=== PATIENT | male | born 1940 | race Caucasian/White ===

== ENCOUNTER 2020-02-26 09:11 | Outpatient (REF) | payer MEDICARE, SELFPAY ==
--- NOTE | 2020-02-26 09:16 | XR_ITS ---
EXAMINATION: XR BILATERAL KNEES STANDING AND ONE VIEW EACH KNEE CLINICAL INFORMATION: Pain right knee. COMPARISON: Bilateral knees 02/27/2019. TECHNIQUE: AP bilateral knee. Lateral view each knee. FINDINGS: AP Bilateral Knee: There is a total bilateral knee replacement with prosthetic components in satisfactory alignment. No bony abnormality seen. No soft tissue swelling. Left Knee: There is a total left knee arthroplasty with prosthetic components including the patellar prosthesis in satisfactory alignment. There is moderate inferior and superior patellar enthesophytes. No abnormal joint effusion seen. Right Knee: There is a total right knee arthroplasty with patellar prosthetic component in satisfactory alignment. Suspect minimal suprapatellar joint effusion. There is a moderate-sized inferior patellar enthesophyte. XR/XR knee RT 2V IMPRESSION: There is bilateral knee prosthesis with prosthetic components in alignment. There are moderate enthesophytes along the superior infrapatellar left knee and moderate enthesophytes along the inferior patella right knee with mild joint effusion. No bony erosive changes seen.
--- NOTE | 2020-02-26 09:16 | XR_ITS ---
EXAMINATION: XR BILATERAL KNEES STANDING AND ONE VIEW EACH KNEE CLINICAL INFORMATION: Pain right knee. COMPARISON: Bilateral knees 02/27/2019. TECHNIQUE: AP bilateral knee. Lateral view each knee. FINDINGS: AP Bilateral Knee: There is a total bilateral knee replacement with prosthetic components in satisfactory alignment. No bony abnormality seen. No soft tissue swelling. Left Knee: There is a total left knee arthroplasty with prosthetic components including the patellar prosthesis in satisfactory alignment. There is moderate inferior and superior patellar enthesophytes. No abnormal joint effusion seen. Right Knee: There is a total right knee arthroplasty with patellar prosthetic component in satisfactory alignment. Suspect minimal suprapatellar joint effusion. There is a moderate-sized inferior patellar enthesophyte. XR/XR knee LT 2V IMPRESSION: There is bilateral knee prosthesis with prosthetic components in alignment. There are moderate enthesophytes along the superior infrapatellar left knee and moderate enthesophytes along the inferior patella right knee with mild joint effusion. No bony erosive changes seen.
--- NOTE | 2020-02-26 09:16 | XR_ITS ---
EXAMINATION: XR BILATERAL KNEES STANDING AND ONE VIEW EACH KNEE CLINICAL INFORMATION: Pain right knee. COMPARISON: Bilateral knees 02/27/2019. TECHNIQUE: AP bilateral knee. Lateral view each knee. FINDINGS: AP Bilateral Knee: There is a total bilateral knee replacement with prosthetic components in satisfactory alignment. No bony abnormality seen. No soft tissue swelling. Left Knee: There is a total left knee arthroplasty with prosthetic components including the patellar prosthesis in satisfactory alignment. There is moderate inferior and superior patellar enthesophytes. No abnormal joint effusion seen. Right Knee: There is a total right knee arthroplasty with patellar prosthetic component in satisfactory alignment. Suspect minimal suprapatellar joint effusion. There is a moderate-sized inferior patellar enthesophyte. XR/XR knee standing BI IMPRESSION: There is bilateral knee prosthesis with prosthetic components in alignment. There are moderate enthesophytes along the superior infrapatellar left knee and moderate enthesophytes along the inferior patella right knee with mild joint effusion. No bony erosive changes seen.
== END 2020-02-26 09:12 | disposition home or self-care (01) ==
LOC: HO.HOSX 09:11
PROVIDERS: Visit Provider Orthopaedic Surgery
DX: M25.561 Pain in right knee (principal); M25.562 Pain in left knee; Z96.653 Presence of artificial knee joint, bilateral
CPT/HCPCS: 73560; 73565; 99212

== ENCOUNTER 2022-03-24 | Outpatient (REF) | payer MEDICARE, SELFPAY ==
--- NOTE | ~2022-03-24 | XR_ITS ---
EXAMINATION: XR HAND, RIGHT CLINICAL INFORMATION: Right hand pain COMPARISON: None TECHNIQUE: PA, lateral, and oblique views of the right hand. FINDINGS: No acute fractures. Joint space narrowing with osteophyte formation and cystic formation is seen within the first carpal metacarpal joint, second DIP joint, third DIP joint, fifth PIP joint and fifth DIP joint. Soft tissues are unremarkable. XR/XR hand RT min 3V IMPRESSION: Degenerative osteoarthritis
== END 2022-03-24 00:01 | disposition home or self-care (01) ==
LOC: HO.HOSX
PROVIDERS: Visit Provider Orthopaedic Surgery
DX: Z13.89 Encounter for screening for other disorder (principal)

== ENCOUNTER → 2022-03-24 08:45 | Outpatient (BNVA) | payer MEDICARE, SELFPAY | PROVIDERS: PCP Internal Medicine; Visit Provider Orthopaedic Surgery | DX: M18.11 Unilateral primary osteoarthritis of first carpometacarpal joint, right hand (principal); M19.041 Primary osteoarthritis, right hand; M79.641 Pain in right hand | CPT/HCPCS: 20600; 73130; 99202; J1020 ==

== ENCOUNTER 2022-03-26 07:54 | Outpatient (REF) | payer MEDICARE, SELFPAY ==
--- NOTE | ~2022-03-26 | XR_ITS ---
EXAMINATION: XR SHOULDER, RIGHT CLINICAL INFORMATION: Pain. COMPARISON: None TECHNIQUE: Three views of the right shoulder. FINDINGS: There is a loss of glenohumeral joint space with moderate inferior periarticular spurring. No loose bodies, bony erosive changes, fracture or dislocation seen. The AC joint space is maintained normal the soft tissues are normal. XR/XR shoulder RT min 2V IMPRESSION: Severe degenerative arthritic changes with periarticular spurring right glenohumeral joint space. No visible acute fracture or dislocation seen.
== END 2022-03-26 07:55 | disposition home or self-care (01) ==
LOC: HO.HOSX 07:54
PROVIDERS: Visit Provider Physician Assistant
DX: M19.011 Primary osteoarthritis, right shoulder (principal)
CPT/HCPCS: 73030; 99212

== ENCOUNTER 2022-04-28 13:14 | Outpatient (REF) | payer OTHER, SELFPAY ==
--- NOTE | ~2022-04-28 | FL_ITS ---
EXAMINATION: XR ARTHROGRAM SHOULDER, RIGHT CLINICAL INFORMATION: Primary osteoarthritis right shoulder. No injury. COMPARISON: None TECHNIQUE: Following explaining fluoroscopy-guided right shoulder arthrogram and steroid injection procedure, benefits and risk, a written consent was obtained. Patient was placed supine on fluoroscopy table and anterior aspect of the right shoulder joint was cleaned and draped in the usual sterile manner. 1% lidocaine was injected at the puncture site. A 22-gauge spinal needle was advanced from the skin into the joint space and 2 mL of nonionic contrast was injected with single image obtained. Uptake confirming contrast in the joint space, 80 mg/1 mL of Depo-Medrol, 8 mL of 1% lidocaine was injected as a 9 mL cocktail into the joint space. The needle was removed and complete hemostasis was achieved at the puncture site. Sterile dressing was applied postprocedure. FINDINGS: On 2 images obtained through the joint space there is mild reduction of glenohumeral joint with a large inferior glenohumeral enthesophyte. There is contrast visualized in the joint space and soft tissues anterior to the joint space. Fluoroscopy-guided steroid injection was performed without immediate complications. FLUOROSCOPY TIME: 1.2 minutes. DOSE AREA PRODUCT: 57.149 uGy-m2 (microgray-meter squared). FL/FL arthrogram shoulder RT IMPRESSION: Successful fluoroscopy-guided right shoulder steroid injection performed without immediate complications.
== END 2022-04-28 13:15 | disposition home or self-care (01) ==
LOC: HO.XRAY 13:14
PROVIDERS: PCP Internal Medicine; Visit Provider Physician Assistant
DX: M19.011 Primary osteoarthritis, right shoulder (principal)
CPT/HCPCS: 23350; 73040

== ENCOUNTER 2023-02-10 11:04 | Outpatient (AMB) | payer OTHER, SELFPAY ==
--- NOTE | 2023-02-10 11:08 | MHC.OFFVIS ---
Intake Vital Signs 02/10/23 11:12 02/10/23 11:13 Height 5 ft 10 in 5 ft 10 in Weight 260 lb 260 lb BMI 37.3 37.3 Intake Visit Reasons: OV - Discuss Right TSA - Arthrogram 04/28/22 Intake Note: Damir is an 82 year old right hand dominant male who presents today for a follow up of his right shoulder. Arthrogram done 04/28/22. Patient reports that this injection was not as helpful as he had hoped and he is here to discuss possible TSA. The injection gave only about 3-4 weeks, Allergies heparin [HEPARIN] Allergy (Intermediate, Unverified 03/26/22 08:37) PLATELET COUNT DIMINISHED Penicillins [PENICILLINS] Allergy (Intermediate, Unverified 03/26/22 08:37) HIVES penicillin G Allergy (Unknown, Verified 03/24/22 08:59) rash/hives Heparin Allergy (Unknown, Uncoded 03/24/22 08:59) blood clots HPI OV - Discuss Right TSA - Arthrogram 04/28/22 HPI Details Damir is an 82 year old man with right shoulder OA who presents with complaints of shoulder pain. He has pain with daily activity and use of his shoulder. He cannot get his hand to his mouth. He is in pain and frustrated that he is not improving. He received a GH joint injxn 04/28/22, with only 3-4 weeks of relief. [facility] Medical History Active asthma Arteriosclerosis Atrial fibrillation Hypercholesteremia Insomnia Nephrolithiasis Prediabetes Surgical History History of appendectomy History of total left knee replacement History of total right knee replacement Social History Current occupational status: retired Current occupation: Right Handed Review of Systems Const All systems reviewed & are unremarkable except as noted in HPI and below Physical Exam Vital Signs: BMI result Body Mass Index 37.3 Const General: no acute distress, alert and awake Orientation/consciousness: patient oriented x3 HEENT Head: Yes normocephalic and Yes atraumatic Eyes EOM: EOMs intact bilaterally Resp Effort & Inspection: normal respiratory effort and able to speak in complete sentences Cardio Jugular venous distension: no JVD Skin General skin exam: turgor normal Rashes: no rashes Neuro General: patient oriented x3 Extrem Other: Right Shoulder: 60 isolated abd 15 deg er 4/5 ec Psych Appearance: grossly normal Affect: normal affect Attitude: cooperative Results Reviewed Results Reviewed: I personally reviewed relevant radiographs Severe degenerative arthritic changes with periarticular spurring right glenohumeral joint space. No visible acute fracture or dislocation seen. Assessment & Plan Assessment & Plan (1) Arthritis of right glenohumeral joint: Code(s): M19.011 - Primary osteoarthritis, right shoulder Plan: This is an 82 year old man with severe right GH OA. He has pain with daily activity and use of his shoulder. He found limited & short-term relief from a shoulder arthrogram on 04/28/22. He feels limited in his ADLs and that his QOL is diminished. His motion is poor and I recommend TSA. I cannot adequately assess his cuff and have ordered an MRI. I supect he may require a rTSA. I discussed the risks benefits and alternatives including but not limited to the risk of pain, infection, stiffness, need for further surgery as well as potential medical complications such as blood clots, pulmonary embolism and cardiac complications. Orders: Orders MR shoulder RT wo con 02/10/23 M19.011 - Primary osteoarthritis, right shoulder CT shoulder RT wo IV con 02/10/23 M19.011 - Primary osteoarthritis, right shoulder Coding Level of Care Code Est Pt Level 4 (29249) Diagnoses Arthritis of right glenohumeral joint M19.011
[2023-02-10 11:12] VITALS: BMI 37.3
[2023-02-10 11:13] VITALS: BMI 37.3
== END 2023-02-10 12:28 | disposition home or self-care (01) ==
PROVIDERS: PCP Internal Medicine; Visit Provider Orthopaedic Surgery
DX: M19.011 Primary osteoarthritis, right shoulder (principal)
CPT/HCPCS: 99214

== ENCOUNTER → 2023-02-10 11:04 | Outpatient (BNVA) | payer OTHER, SELFPAY | PROVIDERS: PCP Internal Medicine; Visit Provider Orthopaedic Surgery ==

== ENCOUNTER 2023-03-17 08:18 | Outpatient (REF) | payer OTHER, SELFPAY ==
--- NOTE | ~2023-03-17 | CT_ITS ---
EXAMINATION: CT SHOULDER WITHOUT CONTRAST, RIGHT CLINICAL INFORMATION: Primary osteoarthritis in the right shoulder. COMPARISON: Radiographs dated 03/26/2022. TECHNIQUE: Axial multidetector volumetric imaging was obtained through the shoulder without intravenous contrast material. Multiplanar reformatted images were submitted. This CT examination was performed using dose optimization techniques as appropriate, variously including the following: *Automated exposure control *Adjustment of mA and/or kV according to patient size (this includes techniques or standardized protocols for targeted exams where dose is matched to indication/reason for exam; i.e. extremities or head) *Use of iterative reconstruction technique DLP: 385 mGy-cm. FINDINGS: Severe degenerative arthritis in the glenohumeral joint characterized by severe joint space narrowing, large marginal osteophytes, subchondral sclerosis, subchondral cystic change, and articular surface remodeling. There is a biconcave appearance of the glenoid with mild posterior erosion. A 7 mm osseous loose body is present in the superior subscapularis recess. Glenoid retroversion: 23 degrees Glenoid vault depth: 24 mm. There is [id number] degenerative arthritis of the acromioclavicular and sternoclavicular joints. The undersurface of the acromion is curved with no subacromial spurs. The included portions of the ribs and chest wall are intact without fractures or lesions. No significant pulmonary abnormalities in the imaged portion of the lung. No axillary adenopathy. There is a small glenohumeral joint effusion. There is complete atrophy and fatty replacement of the teres minor muscle. More mild atrophy and grade 1 fatty replacement are noted at the supraspinatus. No deltoid muscle atrophy. CT/CT shoulder RT wo IV con IMPRESSION: 1. Severe glenohumeral osteoarthritis. 2. [id number] acromioclavicular and sternoclavicular osteoarthritis. 4. Complete atrophy and fatty replacement of the teres minor muscle.
== END 2023-03-17 08:19 | disposition home or self-care (01) ==
LOC: HO.CT 08:18
PROVIDERS: PCP Internal Medicine; Visit Provider Orthopaedic Surgery
DX: M19.011 Primary osteoarthritis, right shoulder (principal)
CPT/HCPCS: 73200

== ENCOUNTER 2023-04-11 11:06 | Outpatient (REF) | payer OTHER, SELFPAY | END 2023-04-11 11:07 | disposition home or self-care (01) | LOC: HO.MRI 11:06 | PROVIDERS: PCP Internal Medicine; Visit Provider Orthopaedic Surgery | DX: Z13.89 Encounter for screening for other disorder (principal) ==

== ENCOUNTER → 2023-05-13 09:07 | Outpatient (BNVA) | payer OTHER, SELFPAY | PROVIDERS: PCP Internal Medicine; Visit Provider Physician Assistant ==

== ENCOUNTER 2023-05-31 07:18 | Inpatient (IN) | payer MEDICARE, SELFPAY ==
[2023-05-24 13:12] VITALS: BP 127/59; PULSE 89; RESP 20; O2SAT 96; BMI 42.0
[2023-05-24 15:04] LABS: MRSA Nasal PCR NEGATIVE (Negative); SA Nasal PCR POSITIVE (Negative)
--- NOTE | 2023-05-30 11:45 | P.CONAN_ITS ---
Documented by User: Krysta Harris NP 05/30/23 11:47 HPI - Anesthesia Eval Consult details Narrative: 82yo M for Right Shoulder Total Arthroplasty Seen in [facility] 05/24/[address] Massey Cardiac cleared Medically cleared [facility] Active Problems Active Problems: All Active Problems (Updated 05/24/23 @ 13:08 by Keturah Woods RN) Arthritis of right glenohumeral joint (Acute) Arthritis of right shoulder region (Acute) Degenerative arthritis of metacarpophalangeal joint of right thumb (Acute) Osteoarthritis of carpometacarpal joint of right thumb (Acute) History of total right knee replacement (Acute) History of total left knee replacement (Acute) Past Medical History Medical History Asthma Thoracic aortic aneurysm Sleep apnea HTN (hypertension) Heparin induced thrombocytopenia Chronic renal insufficiency Pulmonary embolism CAD (coronary artery disease) Prediabetes Nephrolithiasis Insomnia Hypercholesteremia Atrial fibrillation Arteriosclerosis Surgical History Surgical History Hx of cardiac catheterization Hx of cataract surgery Hx of CABG History of appendectomy History of total left knee replacement History of total right knee replacement Social History Social History Are you a primary health care coordinator to a significant other at home: No Do you presently have visiting nurse or other home services: No Patient Tobacco Use Status: Never used Tobacco Use of substances other than those prescribed or required for medical reasons: No Have you been hit, kicked, punched, or otherwise hurt by someone within the past year? If so, by whom?: No Are you DNR?: No Advance Directives: Yes Advance Directives on File: No Recently lost weight without trying: No Eating poorly because of decreased appetite: No Nutrition Risks: No Nutritional Risk Poor oral hygiene: No (has missing teeth-does not wear dentures) Current occupational status: retired 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 Allergies Allergy/AdvReac Type Severity Reaction Status Date / Time heparin [HEPARIN] Allergy Intermediate decreased Verified 05/20/23 10:16 platelet count Penicillins [PENICILLINS] Allergy Intermediate Hives Verified 05/20/23 10:16 Home Medications Medication Instructions Recorded Confirmed Last Taken Type aspirin 81 mg tablet,delayed 81 mg PO BEDTIME 02/25/20 05/24/23 05/24/23 History release (Adult Aspirin Regimen) diltiazem HCl 120 mg 120 mg PO QAM 02/25/20 05/24/23 05/31/23 History capsule,extended release 12 hr fluticasone 100 mcg-salmeterol 50 1 inh inhalation BID 02/25/20 05/20/23 05/31/23 History mcg/dose blistr powdr for inhalation (Advair Diskus) lisinopril 40 mg tablet 40 mg PO QAM 02/25/20 05/24/23 05/30/23 History rosuvastatin 10 mg tablet 10 mg PO QAM 02/25/20 05/24/23 05/30/23 History chlorthalidone 25 mg tablet 25 mg PO QAM 03/24/22 05/24/23 05/30/23 History sildenafil 100 mg tablet 100 mg PO DAILY PRN Erectile 03/24/22 05/20/23 05/24/23 History Dysfunction albuterol sulfate 90 mcg/actuation 2 puff inhalation Q4-6H PRN 05/20/23 05/20/23 05/31/23 History aerosol inhaler (ProAir HFA) Shortness Of Breath Or Wheezing cholecalciferol (vitamin D3) 50 50 mcg PO QAM 05/20/23 05/24/23 05/30/23 History mcg (2,000 unit) capsule (Vitamin D3) multivitamin 1 tab PO DAILY 05/24/23 05/24/23 05/30/23 History Exam Height,Weight and Vital Signs: Height 5 ft 8 in Weight 125.191 kg Last Vital Signs Pulse 89 05/24/23 13:12 Resp 20 05/24/23 13:12 BP 127/59 L 05/24/23 13:12 Pulse Ox 96 05/24/23 13:12 O2 Del Method Room Air 05/24/23 13:12 Pertinent Lab Results Pertinent Lab Results: Laboratory Tests 05/24/23 05/24/23 13:20 13:54 Nasal Screen MRSA (PCR) NEGATIVE Nasal S. aureus Screen POSITIVE A Nasal MRSA/S.aureus Interp SEE NOTE Blood Type O Negative Antibody Screen NEGATIVE CBC and BMP 01/2023 from outside facility WNL Narrative Narrative: EKG 04/2023 NSR @ 75 Assessment and Plan Assessment Anesthesia Assessment: Chart Reviewed Documented by User: Christen Massey MD 05/31/23 09:05 [facility] Past Medical History Medical History Asthma Thoracic aortic aneurysm Sleep apnea HTN (hypertension) Heparin induced thrombocytopenia Chronic renal insufficiency Pulmonary embolism CAD (coronary artery disease) Prediabetes Nephrolithiasis Insomnia Hypercholesteremia Atrial fibrillation Arteriosclerosis Family History Family history of problems with anesthesia: No Surgical History Surgical History Hx of cardiac catheterization Hx of cataract surgery Hx of CABG History of appendectomy History of total left knee replacement History of total right knee replacement History of Problems with Anesthesia: No Social History Social History Are you a primary health care coordinator to a significant other at home: No Do you presently have visiting nurse or other home services: No Patient Tobacco Use Status: Never used Tobacco Use of substances other than those prescribed or required for medical reasons: No Have you been hit, kicked, punched, or otherwise hurt by someone within the past year? If so, by whom?: No Are you DNR?: No Advance Directives: Yes Advance Directives on File: No Recently lost weight without trying: No Eating poorly because of decreased appetite: No Nutrition Risks: No Nutritional Risk Poor oral hygiene: No (has missing teeth-does not wear dentures) Current occupational status: retired 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 Allergies Allergy/AdvReac Type Severity Reaction Status Date / Time heparin [HEPARIN] Allergy Intermediate decreased Verified 05/20/23 10:16 platelet count Penicillins [PENICILLINS] Allergy Intermediate Hives Verified 05/20/23 10:16 Home Medications Medication Instructions Recorded Confirmed Last Taken Type aspirin 81 mg tablet,delayed 81 mg PO BEDTIME 02/25/20 05/24/2305/24/24 History release (Adult Aspirin Regimen) diltiazem HCl 120 mg 120 mg PO QAM 02/25/20 05/24/23 05/31/23 History capsule,extended release 12 hr fluticasone 100 mcg-salmeterol 50 1 inh inhalation BID 02/25/20 05/20/23 05/31/23 History mcg/dose blistr powdr for inhalation (Advair Diskus) lisinopril 40 mg tablet 40 mg PO QAM 02/25/20 05/24/23 05/30/23 History rosuvastatin 10 mg tablet 10 mg PO QAM 02/25/20 05/24/23 05/30/23 History chlorthalidone 25 mg tablet 25 mg PO QAM 03/24/22 05/24/23 05/30/23 History sildenafil 100 mg tablet 100 mg PO DAILY PRN Erectile 03/24/22 05/20/23 05/24/23 History Dysfunction albuterol sulfate 90 mcg/actuation 2 puff inhalation Q4-6H PRN 05/20/23 05/20/23 05/31/23 History aerosol inhaler (ProAir HFA) Shortness Of Breath Or Wheezing cholecalciferol (vitamin D3) 50 50 mcg PO QAM 05/20/23 05/24/23 05/30/23 History mcg (2,000 unit) capsule (Vitamin D3) multivitamin 1 tab PO DAILY 05/24/23 05/24/23 05/30/23 History Exam Airway Mallampati Class: III (lot of redundant neck tissue) TM Dist: <=3cm Neck ROM: Limited Heart: rrr Lungs: cta Assessment and Plan Assessment Anesthesia Assessment: Anesthesia Plan Discussed Final Anesthetic Review Family History of Problems with Anesthesia: No History of Problems with Anesthesia: No NPO: Yes ASA Class: III Final Preanesthetic Review: No Changes in Pt Med Stat, Meds/Allgs Chart Reviewed, Consent Obtained/Reviewed and Anes Risks/Benef Reviewed Patient Risk: Intermediate Procedure Risk: Intermediate Anesthetic Plan Anesthetic Plan: GA and Regional Block Disposition: Standard PACU
[2023-05-31] VITALS (9 sets, daily range): BP systolic 111–155; BP diastolic 55–87; PULSE 67–987; RESP 16–20; TEMP 36–36.8; O2SAT 91–98; BMI 41.1
--- NOTE | ~2023-05-31 | XR_ITS ---
EXAMINATION: XR SHOULDER, RIGHT CLINICAL INFORMATION: Right total shoulder arthroplasty COMPARISON: 03/26/2022 right shoulder TECHNIQUE: Two views of the right shoulder. FINDINGS: A right shoulder arthroplasty is present, new since the prior study. Air is present in the subcutaneous tissues and surgical erin are present, consistent with immediate postoperative appearance. Incidental note made of median sternotomy. XR/XR shoulder RT min 2V IMPRESSION: New right shoulder arthroplasty with immediate postoperative appearance.
--- NOTE | 2023-05-31 07:47 | PHA.MEDREC ---
Pharmacy Consult ? Medication Reconciliation Pharmacy has reviewed the medication reconciliation.
--- NOTE | 2023-05-31 07:55 | MHC.SHP ---
Pre-Procedural Eval Section A - 24 Hr Update-Section A only Date of Service: 05/31/23 The patient is an INPATIENT: No Changes since office visit: No Cold of Flu in the past 2 weeks, No New Medical Problems, No Changes in Medication and No Patient answered all questions The patient has been examined within 24 hours of the surgical procedure. The History & Physical has been completed within 30 days and I have reviewed it.: Yes Section B - Complete if H&P > 30 days Chief Complaint: RT TSA Allergies: Allergies Allergy/AdvReac Type Severity Reaction Status Date / Time heparin [HEPARIN] Allergy Intermediate decreased Verified 05/20/23 10:16 platelet count Penicillins [PENICILLINS] Allergy Intermediate Hives Verified 05/20/23 10:16 Plan I have reviewed the history and physical and performed a pertinent physical examination on my patient. No changes have occurred unless specified. Time Spent With Patient Time: Total time managing care of this patient today ____ minutes.
[2023-05-31] MEDS: Lactated Ringers 1,000 ML 100 ML IVCONT ×3 (08:22→23:11)
--- NOTE | 2023-05-31 10:04 | PC.NURSE ---
no udn given for sob per dr. mayen due to s/e of block. repositioned.and o2 2l n/c applied & high fowlers. with improvement. r.t. on site after paged.
--- NOTE | 2023-05-31 12:51 | P.BOP_ITS ---
Brief Operative Note Date of Service: 05/31/23 Pre-op diagnosis: Right shoulder OA Post-op diagnosis: same Procedure: Right TSA Implants: Tournier Medium 40 glenoid, cemented Size 2 nucleus 48x21 head Surgeon: Ronak Liu MD Anesthesia: GETA and regional Was an Projector Booth Operator used for this Procedure?: Yes Projector Booth Operator: Clemente Guzman Estimated blood loss (mL): 150 IV fluids (mL): 1,200 Pathology: other Condition: stable Disposition: PACU
--- NOTE | 2023-05-31 14:03 | P.OP_ITS ---
Operative Note Operative Note Date of Service: 05/31/23 Narrative: Date of Service: 05/31/23 Pre-op diagnosis: Right shoulder OA Post-op diagnosis: same Procedure: Right TSA Implants: Tournier Medium 40 glenoid, cemented Size 2 nucleus 48x21 head Surgeon: Ronak Liu MD Anesthesia: GETA and regional Was an Junior Art Director used for this Procedure?: Yes Junior Art Director: Clemente Guzman Estimated blood loss (mL): 150 IV fluids (mL): 1,200 Pathology: other Condition: stable Disposition: PACU Procedure in detail: Patient was brought to the operating room and placed in the beach chair position on the surgical table. The limb was prepped and draped in standard sterile fashion and a time out was called to identify proper site, proper procedure and IV antibiotics per weight were administered. I began by making a deltopectoral incision from the coracoid to the pectoralis insertion.? Blunt dissection identified the cephalic vein which was retracted laterally.? Blunt dissection was taken down to the 3 sisters which were cauterized.? I then made a full- thickness capsulotomy including the subscapularis. A 1 cm cuff was left for repair.? This was then tagged and the arm was externally rotated and extended and the head was dislocated.? The humeral head was eburnated and there was a very large inferior osteophyte that was removed with an osteotome.? The RTC was intact. An anatomic head cut was made in patient's natural inclination (approximately 132 degree) .? Posterioor humeral opsteophytes were removed as well and I sized a size 2 nucleus.? Posterior anterior and superior glenoid retractors were placed and the biceps was tenotomized and labral tissue was removed.? Based on the preoperative CT and templating a guide pin was placed in approximately 10 degrees of retroversion and neutral inclination.? Using a wedge Reamer I reamed down to bleeding bone circumferentially and placed the size 40M glenoid drill guide. One bag of [place] bone cement was mixed on the back table. My final glenoid was cemented in place while applying axial compression. Once the cement was dry all excess cement was removed. I then returned to the humerus where I trialed a?48x21 size 2 head. I was satisfied with the height and the stability. I irrigated copiously and then impacted the final implants. I was satisfied with the stability of the implants. I then irrigated and repaired the subscapularis with fiberwire.? I closed in a layered fashion with absorbable suture and erin and the patient was placed in a sterile dressing and an abduction sling.? Patient was extubated brought to recovery room stable condition there were no known complications.
--- NOTE | 2023-05-31 16:09 | HO.PM.IMCN ---
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 Has had bilateral knee replacements in past without complication. Currently denies fever, chills, dyspnea, cough, palpitations, or chest pain. Not on AC for AF. Review of Systems Review of Systems: Yes all other systems are reviewed and are negative [facility] Medical History Asthma Thoracic aortic aneurysm Sleep apnea HTN (hypertension) Heparin induced thrombocytopenia Chronic renal insufficiency Pulmonary embolism CAD (coronary artery disease) Prediabetes Nephrolithiasis Insomnia Hypercholesteremia Atrial fibrillation Arteriosclerosis Surgical History Hx of cardiac catheterization Hx of cataract surgery Hx of CABG History of appendectomy History of total left knee replacement History of total right knee replacement Social History Household Members: Spouse Housing: House Are you a primary continuum of care manager to a significant other at home: No Do you presently have visiting nurse or other home services: No Patient Tobacco Use Status: Never used Tobacco Use of substances other than those prescribed or required for medical reasons: No Have you been hit, kicked, punched, or otherwise hurt by someone within the past year? If so, by whom?: No Do you feel safe in your current relationship?: Yes Is there a partner from a previous relationship who is making you feel unsafe now?: No Are you made to feel afraid or neglected: No Are you DNR?: No Advance Directives: No Advance Directives Information Provided: Yes ( has copy) Advance Directives on File: No Do you have thoughts of harming others: None Do you have a plan to hurt others: No Plan Recently lost weight without trying: No How much weight loss: Not applicable Eating poorly because of decreased appetite: No Nutrition screen score: 0 Nutrition Risks: No Nutritional Risk Poor oral hygiene: No Current occupational status: retired 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 Allergies Allergy/AdvReac Type Severity Reaction Status Date / Time heparin [HEPARIN] Allergy Intermediate decreased Verified 05/20/23 10:16 platelet count Penicillins [PENICILLINS] Allergy Intermediate Hives Verified 05/20/23 10:16 Active Medications: Current Medications Acetaminophen (Acetaminophen 325 Mg Tablet) 650 mg PO Q6H PRN PRN Reason: Pain, Mild (Pain Scale 1-3) Albuterol Sulfate (Albuterol Sulfate 90 Mcg 8 Gm Inhaler) 2 puff INHALE Q4H PRN PRN Reason: Shortness Of Breath Or Wheezing Celecoxib (Celecoxib 200 Mg Capsule) 200 mg PO BID [facility] Diltiazem HCl (Diltiazem Hcl Cd 120 Mg Cap.Er.Deg) 120 mg PO DAILY LICO; Protocol Docusate Sodium (Docusate Sodium 100 Mg Capsule) 100 mg PO BID [facility] Fluticasone/Vilanterol (Fluticasone/Vilanterol 100/25 Blst.W.Dev) 1 puff INHALE RDAILY [facility] Hydrochlorothiazide (Hydrochlorothiazide 25 Mg Tablet) 25 mg PO DAILY [facility] Hydromorphone HCl (Hydromorphone Hcl 0.5 Mg/0.5 Ml Syringe) 0.25 mg IVPUSH Q4H PRN; Protocol PRN Reason: Pain, Severe (Pain Scale 7-10) Lactated Ringer's (Lr) 1,000 mls @ 100 mls/hr IVCONT .Q10H [facility] Stop: 06/01/23 12:56 Last Admin: 05/31/23 14:15 Dose: 100 mls/hr Cefazolin Sodium/Dextrose (Ancef) 2 gm in 50 mls @ 100 mls/hr IV POSTOP ONE Stop: 05/31/23 17:29 Multivitamins/Vitamin C (Multivitamin Tablet) 1 tab PO DAILY [facility] Non-Formulary Medication (Rosuvastatin) 10 mg PO QAM [facility] Ondansetron HCl (Ondansetron Hcl 4 Mg/2 Ml Vial) 4 mg IVPUSH Q8H PRN PRN Reason: Nausea and Vomiting Oxycodone HCl (Oxycodone Hcl Immed Release 5 Mg Tablet) 5 mg PO Q4H PRN PRN Reason: Pain, Moderate(Pain Scale 4-6) Oxycodone HCl (Oxycodone Hcl Er 10 Mg Tab.Er.12h) 20 mg PO BID [facility] Sodium Chloride (0.9 % Sodium Chloride Flush 3 Ml Syringe) 3 ml IVFLUSH QSHIFT [facility] Last Admin: 05/31/23 15:57 Dose: Not Given Vitamin D (Cholecalciferol (Vitamin D3) 25 Mcg Tablet) 50 mcg PO DAILY [facility] Home Medications Medication Instructions Recorded Confirmed Last Taken Type aspirin 81 mg tablet,delayed 81 mg PO BEDTIME 02/25/20 05/24/23 05/24/23 History release (Adult Aspirin Regimen) diltiazem HCl 120 mg 120 mg PO QAM 02/25/20 05/24/23 05/31/23 History capsule,extended release 12 hr fluticasone 100 mcg-salmeterol 50 1 inh inhalation BID 02/25/20 05/20/23 05/31/23 History mcg/dose blistr powdr for inhalation (Advair Diskus) lisinopril 40 mg tablet 40 mg PO QAM 02/25/20 05/24/23 05/30/23 History rosuvastatin 10 mg tablet 10 mg PO QAM 02/25/20 05/24/23 05/30/23 History chlorthalidone 25 mg tablet 25 mg PO QAM 03/24/22 05/24/23 05/30/23 History sildenafil 100 mg tablet 100 mg PO DAILY PRN Erectile 03/24/22 05/20/23 05/24/23 History Dysfunction albuterol sulfate 90 mcg/actuation 2 puff inhalation Q4-6H PRN 05/20/23 05/20/23 05/31/23 History aerosol inhaler (ProAir HFA) Shortness Of Breath Or Wheezing cholecalciferol (vitamin D3) 50 50 mcg PO QAM 05/20/23 05/24/23 05/30/23 History mcg (2,000 unit) capsule (Vitamin D3) multivitamin 1 tab PO DAILY 05/24/23 05/24/23 05/30/23 History Physical Exam Vital Signs and Narrative: Vital Signs: Last Vital Signs Temp 97.4 F 05/31/23 15:59 Pulse 91 05/31/23 15:59 Resp 20 05/31/23 15:59 BP 111/56 L 05/31/23 15:59 Pulse Ox 92 05/31/23 15:59 O2 Del Method Room Air 05/31/23 15:59 O2 Flow Rate 2 05/31/23 13:28 BMI result Body Mass Index 41.1 Gen: in no acute distress HEENT: sclera anicteric, moist mucus membranes Neck: supple Lungs: clear to auscultation bilaterally Heart: regular rate and rhythm, no murmurs Abd: soft, non-tender, non-distended, obese Ext: no edema, RUE in sling Skin: warm/well-perfused Neuro: alert and oriented x3, no focal findings Psych: appropriate affect Results Imaging Radiologist's Impressions: Impressions Shoulder X-Ray 05/31/23 14:05 IMPRESSION: New right shoulder arthroplasty with immediate postoperative appearance. 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 Medicine consultation requested for management of comorbid conditions. CAD/CABG - resume stati [sub atorva for rosuva]n; resume ASA when ok with Ortho paroxysmal AF - resume diltiazem; not on AC CHELSI - CPAP at night HTN - resume diltiazem + chlorthalidone; hold lisinopril until adequate BP room hx HIT - heparin and enoxaparin are contraindicated hx PE - would give DOAC such as apixaban or rivaroxaban when ok with Ortho mild persistent asthma not in acute exac - continue ICS/LABA + prn albuterol Thank you for this consultation. We will continue to follow along with you.
[2023-05-31] MEDS: ceFAZolin Sodium/Dextrose,Iso 2 GM/50 ML PIGGYBACK IV (16:46)
[2023-05-31] MEDS: Docusate Sodium 100 MG CAPSULE PO (20:09)
[2023-05-31] MEDS: oxyCODONE HCl ER 10 MG TAB.ER.12H 20 MG PO (20:09)
[2023-05-31] MEDS: Celecoxib 200 MG CAPSULE PO (20:09)
[2023-06-01 03:29] VITALS: BP 109/60; PULSE 78; RESP 18; TEMP 36.1; O2SAT 95
[2023-06-01 06:47] LABS: MANUAL DIFF FLAG NO
[2023-06-01 06:56] LABS: Basophils Percent Auto 0.2 % (0-2); Hematocrit 35.1 % (42.0-52.0); Hemoglobin 12.1 g/dl (14.0-18.0); Imm Gran Abs Auto 0.06 X10*3/uL (0.00-0.03); Imm Gran Pct Auto 0.5 % (0.0-0.4); Lymphocytes Absolute Auto 0.9 X10*3/uL (1.2-4.9); Lymphocytes Percent Auto 7.5 % (20-40); Mean Corpuscular HGB Conc 34.5 g/dl (31.0-36.0); Mean Corpuscular Hemoglobin 32.5 pg (27.0-33.0); Mean Corpuscular Volume 94.4 fL (80.0-98.0); Mean Platelet Volume 10.2 fL (9.4-12.4); Monocytes Absolute Auto 0.9 X10*3/uL (0.1-1.2); Monocytes Percent Auto 7.3 % (2-11); Neutrophils Absolute Auto 10.4 x10*3/uL (2.0-8.3); Neutrophils Percent Auto 84.5 % (45-73); Platelet Count 191 X10*3/uL (160-400); Red Blood Count 3.72 X10*6/uL (4.60-5.80); Red Cell Distribution Width 12.3 % (11.0-16.0); White Blood Count 12.3 X10*3/uL (4.8-10.8)
[2023-06-01] MEDS: Atorvastatin Calcium 40 MG TABLET PO (07:10)
[2023-06-01] MEDS: oxyCODONE HCl ER 10 MG TAB.ER.12H 20 MG PO (07:10)
[2023-06-01] MEDS: Docusate Sodium 100 MG CAPSULE PO (07:10)
[2023-06-01] MEDS: hydroCHLOROthiazide 25 MG TABLET PO (07:10)
[2023-06-01] MEDS: Cholecalciferol (Vitamin D3) 25 MCG TABLET 50 MCG PO (07:10)
[2023-06-01] MEDS: dilTIAZem HCL CD 120 MG CAP.ER.DEG PO (07:10)
[2023-06-01] MEDS: Multivitamin TABLET 1 TAB PO (07:10)
[2023-06-01] MEDS: Celecoxib 200 MG CAPSULE PO (07:11)
[2023-06-01 07:13] LABS: Anion Gap 14 (12-20); Blood Urea Nitrogen 34 mg/dL (9-16); Calcium 8.4 mg/dL (8.4-10.2); Carbon Dioxide 21 mmol/L (22-29); Chloride 103 mmol/L (96-108); Creatinine Clr Calc Pharmacy 65.7; Estimated Glomerular Filt Rate > 60; Glucose Fasting 156 mg/dL (60-99); Potassium 4.7 mmol/L (3.3-5.1); Sodium 133 mmol/L (135-145)
[2023-06-01 07:44] VITALS: BP 107/55; PULSE 80; RESP 18; TEMP 36.4; O2SAT 93
--- NOTE | 2023-06-01 07:52 | PM.PNORT ---
Subjective Subjective Date of Service: 06/01/23 Interval history: POD1 s/p right TSA Patient is resting in the recliner comfortably No overnight events Pain is managed Block is still in effect No additional complaints Physical Exam Vital Signs: Vital Signs: Last Vital Signs Temp 97.5 F 06/01/23 07:44 Pulse 80 06/01/23 07:44 Resp 18 06/01/23 07:44 BP 107/55 L 06/01/23 07:44 Pulse Ox 93 06/01/23 07:44 O2 Del Method Room Air 06/01/23 07:44 O2 Flow Rate 2 05/31/23 13:28 BMI result Body Mass Index 41.1 Const: General: cooperative, healthy appearing and no acute distress Resp: Effort & Inspection: normal respiratory effort and able to speak in complete sentences Cardio: Rate: regular rate Peripheral pulses: Peripheral pulses 2+ throughout GI: Palpation (GI): Soft to palpation Skin: Lesions: no lesions Rashes: no rashes Extrem: Other: Right shoulder Aquacel is c/d/i. Able to flex and extend at the wrist. Sensation is returning to baseline. Capillary refill brisk. Procedures Date of Service Date of Service: 06/01/23 Progress Note: A&P Assessment and plan (1) Status post total replacement of right shoulder: Status: Acute Plan Continue pain mgmnt Begin Eliquis for dvt ppx begin OT for right TSA Dispo planning-Pending OT eval, pain mgmnt Time Spent With Patient Time: Total time managing care of this patient today ____ minutes. Quality Stroke Does the patient have a stroke diagnosis?: No VTE Prior VTE?: No VTE Risk Level:: Medical - moderate - high VTE Device Contraindication: N/A - Device Ordered VTE Drug Contraindication: N/A - Med Ordered
--- NOTE | 2023-06-01 07:54 | PC.RT ---
Pt took own inhalers this am from home, pt refused hospital inhaler.
[2023-06-01] MEDS: Lactated Ringers 1,000 ML 100 ML IVCONT (08:29)
--- NOTE | 2023-06-01 09:19 | P.PNIM_ITS ---
Subjective Subjective Date of Service: 06/01/23 Interval History: denies R shoulder pain no chest pain or dyspnea Review of Systems Review of Systems: Yes all other systems are reviewed and are negative Physical Exam 2 Vital Signs: Vital Signs: Last Vital Signs Temp 97.5 F 06/01/23 07:44 Pulse 80 06/01/23 07:44 Resp 18 06/01/23 07:44 BP 107/55 L 06/01/23 07:44 Pulse Ox 93 06/01/23 07:44 O2 Del Method Room Air 06/01/23 07:44 O2 Flow Rate 2 05/31/23 13:28 BMI result Body Mass Index 41.1 Gen: in no acute distress HEENT: sclera anicteric, moist mucus membranes Neck: supple Lungs: clear to auscultation bilaterally Heart: regular rate and rhythm, no murmurs Abd: soft, non-tender, non-distended, obese Ext: no edema, RUE in sling Skin: warm/well-perfused Neuro: alert and oriented x3, no focal findings Psych: appropriate affect Objective Data Active Medications Acetaminophen (Acetaminophen 325 Mg Tablet) 650 mg PO Q6H PRN PRN Reason: Pain, Mild (Pain Scale 1-3) Albuterol Sulfate (Albuterol Sulfate 90 Mcg 8 Gm Inhaler) 2 puff INHALE Q4H PRN PRN Reason: Shortness Of Breath Or Wheezing Apixaban (Apixaban 2.5 Mg Tablet) 2.5 mg PO BID [facility] Atorvastatin Calcium (Atorvastatin Calcium 40 Mg Tablet) 40 mg PO DAILY [facility] Last Admin: 06/01/23 07:10 Dose: 40 mg Documented By: JORGE Celecoxib (Celecoxib 200 Mg Capsule) 200 mg PO BID [facility] Last Admin: 06/01/23 07:11 Dose: 200 mg Documented By: JORGE Diltiazem HCl (Diltiazem Hcl Cd 120 Mg Cap.Er.Deg) 120 mg PO DAILY [facility]; Protocol Last Admin: 06/01/23 07:10 Dose: 120 mg Documented By: JORGE Docusate Sodium (Docusate Sodium 100 Mg Capsule) 100 mg PO BID [facility] Last Admin: 06/01/23 07:10 Dose: 100 mg Documented By: JORGE Fluticasone/Vilanterol (Fluticasone/Vilanterol 100/25 Blst.W.Dev) 1 puff INHALE RDAILY [facility] Last Admin: 06/01/23 07:54 Dose: Not Given Documented By: ARACELI Non-Admin Reason: See Note Hydrochlorothiazide (Hydrochlorothiazide 25 Mg Tablet) 25 mg PO DAILY [facility] Last Admin: 06/01/23 07:10 Dose: 25 mg Documented By: JORGE Hydromorphone HCl (Hydromorphone Hcl 0.5 Mg/0.5 Ml Syringe) 0.25 mg IVPUSH Q4H PRN; Protocol PRN Reason: Pain, Severe (Pain Scale 7-10) Lactated Ringer's (Lr) 1,000 mls @ 100 mls/hr IVCONT .Q10H [facility] Stop: 06/01/23 12:56 Last Admin: 06/01/23 08:29 Dose: 100 mls/hr Documented By: AMANDA Multivitamins/Vitamin C (Multivitamin Tablet) 1 tab PO DAILY [facility] Last Admin: 06/01/23 07:10 Dose: 1 tab Documented By: JORGE Ondansetron HCl (Ondansetron Hcl 4 Mg/2 Ml Vial) 4 mg IVPUSH Q8H PRN PRN Reason: Nausea and Vomiting Oxycodone HCl (Oxycodone Hcl Immed Release 5 Mg Tablet) 5 mg PO Q4H PRN PRN Reason: Pain, Moderate(Pain Scale 4-6) Oxycodone HCl (Oxycodone Hcl Er 10 Mg Tab.Er.12h) 20 mg PO BID [facility] Last Admin: 06/01/23 07:10 Dose: 20 mg Documented By: JORGE Sodium Chloride (0.9 % Sodium Chloride Flush 3 Ml Syringe) 3 ml IVFLUSH QSHIFT [facility] Last Admin: 06/01/23 07:13 Dose: Not Given Documented By: JORGE Non-Admin Reason: IV Running Vitamin D (Cholecalciferol (Vitamin D3) 25 Mcg Tablet) 50 mcg PO DAILY [facility] Last Admin: 06/01/23 07:10 Dose: 50 mcg Documented By: JORGE Labs 06/01/23 05:47 06/01/23 05:47 Labs: Laboratory Results - last 24 hr 06/01/23 05:47 MCV 94.4 MCH 32.5 MCHC 34.5 RDW 12.3 Plt Count 191 MPV 10.2 Immature Gran % (Auto) 0.5 H Neut % (Auto) 84.5 H Lymph % (Auto) 7.5 L [place] % (Auto) 7.3 Eos % (Auto) 0.0 Baso % (Auto) 0.2 Lymph # (Auto) 0.9 L [place] # (Auto) 0.9 Eos # (Auto) 0.0 Baso # (Auto) 0.0 Abs Immat Gran (auto) 0.06 H Absolute Neuts (auto) 10.4 H Absolute Nucleated RBC 0.000 Nucleated RBC % (auto) 0.0 Anion Gap 14 Estim Creat Clear Calc 65.7 Estimated GFR > 60 Fasting Glucose 156 H Calcium 8.4 Assessment and Plan (1) Status post total replacement of right shoulder: Status: Acute Plan d2 82yo M with hx CAD s/p 2v CABG 12 yr ago 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 Medicine consultation requested for management of comorbid conditions. CAD/CABG - resumed statin [sub atorva for rosuva]; resume ASA paroxysmal AF - resume diltiazem; not on AC CHELSI - CPAP at night HTN - resumed diltiazem + chlorthalidone; continue to hold lisinopril until adequate BP room hx HIT - heparin and enoxaparin are contraindicated; ok to use DOACs hx PE - to start apixaban as per Ortho mild persistent asthma not in acute exac - continue ICS/LABA + prn albuterol CKD3 - SCr at baseline VTE ppx - apixaban Thank you for this consultation. We will continue to follow the patient while they are admitted to your service. Total time managing care of this patient today: 35 minutes. Quality Stroke Does the patient have a stroke diagnosis?: No VTE Prior VTE?: No VTE Risk Level:: Medical - moderate - high VTE Device Contraindication: N/A - Device Ordered VTE Drug Contraindication: N/A - Med Ordered
--- NOTE | 2023-06-01 10:09 | HO.POSTANES ---
Post Anesthesia Evaluation Post Anesthesia Evaluation Date of Service: 06/01/23 Vital Signs: Vital Signs Temp Pulse Resp BP Pulse Ox O2 Del Method 06/01/23 07:44 97.5 F 80 18 107/55 L 93 Room Air 06/01/23 03:29 97 F 78 18 109/60 95 CPAP Anesthesia: Nerve Block and General Endotracheal-GETA Mental Status: Awake Pain Control: Satisfactory Nausea/Vomiting: None Hydration: Adequate Anesthesia-Related Issues: No Anes. Related Issues
[2023-06-01] MEDS: Apixaban 2.5 MG TABLET PO (10:53)
--- NOTE | 2023-06-01 11:36 | MHC.CM.PN ---
Addendum entered by Caryn Moon RN 06/01/23 13:24: PATIENT IS MEDICALLY CLEARED FOR DC HOME W/ SERVICES. [facility] AWARE OF DC. AT BEDSIDE TO TRANSPORT HOME. Original Note: PATIENT IS FROM HOME W/ . 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 HAS CPAP, THROUGH [facility] PCP CARYN MARMOLEJO MD HCP [place], COPY REQUESTED, WILL BRING IN DP: PER OT EVAL, HOME W/ SERVICES. PATIENT PREFERS [facility]. REFERRAL IN PLACE. CAN TRANSPORT HOME. CM WILL CONTINUE TO FOLLOW.
--- NOTE | 2023-06-01 12:53 | P.DS_ITS ---
DS: Providers Provider Date of Service: 06/01/23 Date of admission: 05/31/23 07:18 Primary care physician: Miguel Scott MD Consults: 05/31/23 13:26 Consult to Hospitalist Routine Comment: Consulting Provider: Hospitalist Reason For Exam: h/o CABG / stents DS: Diagnosis Discharge Diagnosis (1) Status post total replacement of right shoulder: Status: Acute DS: Summary Hospital Course Hospital Course: The patient underwent a successful right total shoulder arthroplasty, they were transferred to PACU and then to the floor to recover. During their stay, their vitals were stable, afebrile at 97.5. Labs were unremarkable, H/H 12.1/35.1. POD 1 they were started on Eliquis 2.5mg po bid for DVT ppx, they also received occupational Therapy services. Prior to discharge, their dressing was clean dry and intact, nand the plan was to be discharged home with VNA services. Time Attestation Discharge coordination time: Less than 30 minutes Quality: Safe Use of Opioids Does Pt have an Active Cancer Diagnosis on the Problem List?: No Quality: Stroke Does the patient have a stroke diagnosis?: No Physical Exam Vital Signs: Vital Signs: Last Vital Signs Temp 97.5 F 06/01/23 07:44 Pulse 80 06/01/23 07:44 Resp 18 06/01/23 07:44 BP 107/55 L 06/01/23 07:44 Pulse Ox 93 06/01/23 07:44 O2 Del Method Room Air 06/01/23 07:44 O2 Flow Rate 2 05/31/23 13:28 BMI result Body Mass Index 41.1 Const: General: cooperative, healthy appearing and no acute distress Resp: Effort & Inspection: normal respiratory effort and able to speak in complete sentences Cardio: Rate: regular rate Peripheral pulses: Peripheral pulses 2+ throughout GI: Palpation (GI): Soft to palpation Skin: Lesions: no lesions Rashes: no rashes Extrem: Other: Right shoulder Aquacel is c/d/i. Able to flex and extend at the wrist. Sensation is returning to baseline. Capillary refill brisk. DS: Data Data Completed and Pending Pending studies at discharge: Pending at discharge 05/31/23 12:26 Surgical [PTH] Routine Labs on day of discharge: Laboratory Results - last 24 hr 06/01/23 05:47 WBC 12.3 H RBC 3.72 L Hgb 12.1 L Hct 35.1 L MCV 94.4 MCH 32.5 MCHC 34.5 RDW 12.3 Plt Count 191 MPV 10.2 Immature Gran % (Auto) 0.5 H Neut % (Auto) 84.5 H Lymph % (Auto) 7.5 L [place] % (Auto) 7.3 Eos % (Auto) 0.0 Baso % (Auto) 0.2 Lymph # (Auto) 0.9 L [place] # (Auto) 0.9 Eos # (Auto) 0.0 Baso # (Auto) 0.0 Abs Immat Gran (auto) 0.06 H Absolute Neuts (auto) 10.4 H Absolute Nucleated RBC 0.000 Nucleated RBC % (auto) 0.0 Sodium 133 L Potassium 4.7 Chloride 103 Carbon Dioxide 21 L Anion Gap 14 BUN 34 H Creatinine 1.15 Estim Creat Clear Calc 65.7 Estimated GFR > 60 Fasting Glucose 156 H Calcium 8.4 Discharge Plan Discharge Anticipated Discharge Date/Time: 06/01/23 12:30 Patient Disposition: Home Health Service Discharge Diagnosis: s/p RT TSA Referrals: Clemente Guzman PA-C [Physician Tapper Supervisor] - 06/16/23 2:00 pm Discharge Medications: New celecoxib 200 mg Capsule 200 mg PO BID 30 Days Qty: 60 0RF acetaminophen 325 mg Tablet 650 mg PO Q6H PRN (Reason: Pain, Mild (Pain Scale 1-3)) 30 Days Qty: 240 0RF docusate sodium 100 mg Capsule 100 mg PO BID 30 Days Qty: 60 0RF oxycodone 5 mg Tablet 5 mg PO Q4H PRN (Reason: Pain, Moderate(Pain Scale 4-6)) 7 Days Qty: 42 0RF Rx Instructions: Partial Fill upon patient request. Continued albuterol sulfate [ProAir HFA] 90 mcg/actuation Hfa Aerosol Inhaler 2 puff INHALATION Q4-6H PRN (Reason: Shortness Of Breath Or Wheezing) cholecalciferol (vitamin D3) [Vitamin D3] 50 mcg (2,000 unit) Capsule 50 mcg PO QAM multivitamin Tablet 1 tab PO DAILY fluticasone propion-salmeterol [Advair Diskus] 100-50 mcg/dose blister with device 1 inh inhalation BID diltiazem HCl 120 mg capsule,extended release 12 hr 120 mg PO QAM lisinopril 40 mg tablet 40 mg PO QAM rosuvastatin 10 mg tablet 10 mg PO QAM sildenafil 100 mg tablet 100 mg PO DAILY PRN (Reason: Erectile Dysfunction) chlorthalidone 25 mg tablet 25 mg PO QAM Held aspirin [Adult Aspirin Regimen] 81 mg tablet,delayed release (DR/EC) 81 mg PO BEDTIME Hold Instructions: Resume on 07/12/23. Discharge Orders: Discharge Order (Routine); Ordered 06/01/23 Ordered By: Santa Roche Diet: Advance to usual diet Activity on Discharge: Use Splints or Immobilizers Stand Alone Forms: Patient Portal Discharge page Care Plan Goals: None fxn to rt shoulder Health Concerns: none Plan of Treatment: Wear sling at all times, including sleeping-OK to remove for pendulum exercises throughout the day No lifting-OK to move arm at elbow and wrist Do not bathe or shower - keep dressing clean, dry and intact Call [facility] orthopedics with any questions or concerns. Follow up with orthopedics in 7-10 days post op Assessment: stable for discharge
--- NOTE | 2023-06-01 12:55 | W.MHC.F2F ---
Service Date Service Date: 06/01/23 Encounter Date of encounter: 06/01/23 Reasons for Services Signs and symptoms assessed: s/p RTKA. Pt. is considered homebound due to recent surgery. Unable to drive, poor balance, poor gait mechanics. Reason for occupational therapy: home safety and mobility, therapeutic exercises, restore joint function, gait/transfer training, assess need for DME and ADL training Homebound: Leaving the home is medically contraindicated at this time without the asist of a device and/or another person due th the listed conditions above and below. Reason homebound: unsteady gait / fall risk, pain with transfers and unable to drive Certification: Based on the above findings, I certify that this patient is confined to the home and needs intermittent assisted care, physical therapy and/or speech therapy, or continues to need occupational therapy. The patient is under my care, and I have initiated the establishment of the plan of care. The patient will be followed by a physician who will periodically review the plan of care. Time Spent With Patient Time: Total time managing care of this patient today ____ minutes.
== END 2023-06-01 13:30 | disposition home health service (06) | DRG 483 ==
LOC: HO.SSSA 09:21 → HO.S3 13:10
PROVIDERS: Physician Assistant; Admitting Provider Orthopaedic Surgery; PCP Internal Medicine; Visit Provider Orthopaedic Surgery
PROC: 0RRJ0JZ Replacement of Right Shoulder Joint with Synthetic Substitute, Open Approach (ICD-10-PCS; CPT 23472; principal; 2023-05-31 09:40)
DX: M19.011 Primary osteoarthritis, right shoulder (principal); I25.10 Atherosclerotic heart disease of native coronary artery without angina pectoris; Z88.0 Allergy status to penicillin; G89.18 Other acute postprocedural pain; G47.33 Obstructive sleep apnea (adult) (pediatric); I12.9 Hypertensive chronic kidney disease with stage 1 through stage 4 chronic kidney disease, or unspecified chronic kidney disease; N18.30 Chronic kidney disease, stage 3 unspecified; I48.0 Paroxysmal atrial fibrillation; J45.30 Mild persistent asthma, uncomplicated; Z86.711 Personal history of pulmonary embolism; Z95.1 Presence of aortocoronary bypass graft; Z79.82 Long term (current) use of aspirin; Z79.51 Long term (current) use of inhaled steroids; Z79.899 Other long term (current) drug therapy
CPT/HCPCS: 36415; 73030; 80048; 85025; 86850; 86900; 86901; 87640; 87641; 88304; 88311; 97165; C1713; C1776; J0171; J0665; J0690; J1100; J2250; J2371; J2405; J2704; J3010; J7120

== ENCOUNTER → 2023-05-31 07:18 | Outpatient (BNV) | payer OTHER, SELFPAY | PROVIDERS: Admitting Provider Orthopaedic Surgery; PCP Internal Medicine; Visit Provider Orthopaedic Surgery | DX: Z47.1 Aftercare following joint replacement surgery (principal); Z96.611 Presence of right artificial shoulder joint | CPT/HCPCS: 23472; 99024; G0180 ==

== ENCOUNTER → 2023-05-31 07:18 | Outpatient (BNV) | payer OTHER, SELFPAY | PROVIDERS: Admitting Provider Orthopaedic Surgery; PCP Internal Medicine; Visit Provider Family Medicine | DX: I10 Essential (primary) hypertension (principal); N18.30 Chronic kidney disease, stage 3 unspecified; Z96.611 Presence of right artificial shoulder joint | CPT/HCPCS: 99221; 99232 ==

== ENCOUNTER 2023-06-16 09:18 | Outpatient (REF) | payer MEDICARE, SELFPAY ==
--- NOTE | ~2023-06-16 | XR_ITS ---
EXAMINATION: XR SHOULDER, RIGHT CLINICAL INFORMATION: Pain in right shoulder. COMPARISON: 05/31/2023 radiographs right shoulder. TECHNIQUE: Three views of the right shoulder. FINDINGS: Redemonstration of right shoulder arthroplasty. Surgical erin present. Median sternotomy wires and degenerative changes in the thoracic spine are minimally imaged. Acromioclavicular alignment preserved. XR/XR shoulder RT min 2V IMPRESSION: Redemonstration of right shoulder arthroplasty.
== END 2023-06-16 09:19 | disposition home or self-care (01) ==
LOC: HO.HOSX 09:18
PROVIDERS: Visit Provider Physician Assistant
DX: Z47.1 Aftercare following joint replacement surgery (principal); Z96.611 Presence of right artificial shoulder joint
CPT/HCPCS: 73030

== ENCOUNTER 2023-06-16 13:44 | Outpatient (AMB) | payer OTHER, SELFPAY ==
[2023-06-16 14:02] VITALS: BMI 39.9
--- NOTE | 2023-06-16 14:02 | MHC.OFFVIS ---
Intake Vital Signs 06/16/23 14:02 Height 5 ft 9 in Weight 270 lb BMI 39.9 Intake Visit Reasons: PO- RT TSA 05/31/23 NE Intake Note: Damir is an 82 year old right hand dominant male who presnets today with his for a post operatve appointment s/p Right TSA 05/31/23. He is doing well with no pain or concerns. He is wearing his sling at all times. Allergies heparin [HEPARIN] Allergy (Intermediate, Verified 05/20/23 10:16) decreased platelet count Penicillins [PENICILLINS] Allergy (Intermediate, Verified 05/20/23 10:16) Hives apixaban [From Eliquis] Adverse Reaction (Verified 06/16/23 14:04) increased urination HPI PO- RT TSA 05/31/23 NE HPI Details 82-year-old right hand dominant male who returns to the office today with his for post-op right TSA, 05/31/[address] Liu. He states he has no pain and is doing well overall. He is wearing his sling at all times with benefits. He is doing well overall and has no concerns today. [facility] Medical History Asthma Thoracic aortic aneurysm Sleep apnea HTN (hypertension) Heparin induced thrombocytopenia Chronic renal insufficiency Pulmonary embolism CAD (coronary artery disease) Prediabetes Nephrolithiasis Insomnia Hypercholesteremia Atrial fibrillation Arteriosclerosis Surgical History Hx of cardiac catheterization Hx of cataract surgery Hx of CABG History of appendectomy History of total left knee replacement History of total right knee replacement Social History Household Members: Spouse Housing: House Are you a primary home care manager to a significant other at home: No Do you presently have visiting nurse or other home services: No Patient Tobacco Use Status: Never used Tobacco service: No Current occupational status: retired Current occupation: Right Handed Review of Systems Const All systems reviewed & are unremarkable except as noted in HPI and below Physical Exam Vital Signs: BMI result Body Mass Index 39.9 Extrem Other: Right shoulder: Incision clean, dry and intact. No erythema or drainage. She has full anterior deltoid sensation. Results Reviewed Results Reviewed: Xrays were obtained in the office today and personally reviewed by me of the right shoulder show intact prosthesis Assessment & Plan Assessment & Plan (1) Arthritis of right glenohumeral joint: Code(s): M19.011 - Primary osteoarthritis, right shoulder Plan Petra removed, steri strips applied. He will begin to transition to Outpatient PT to continue working on ROM, periscap stabilization. Sub scap repair. He will continue to use the sling x4 weeks. No driving for another 4 weeks. He will f/u in 4 weeks, sooner if needed. Orders: Orders XR shoulder RT min 2V 06/16/23 M25.511 - Pain in right shoulder Patient Instructions: Scribed for Clemente Guzman PA-C, by Madi Gamino medical technologist chief, on 06/16/2023 at 2:00 PM EST. I, Clemente Guzman PA-C, have personally reviewed and agree with the information entered by the scribe. Coding Level of Care Code Global (78357) Diagnoses Arthritis of right glenohumeral joint M19.011
== END 2023-06-16 14:21 | disposition home or self-care (01) ==
PROVIDERS: PCP Internal Medicine; Visit Provider Physician Assistant
DX: M19.011 Primary osteoarthritis, right shoulder (principal)
CPT/HCPCS: 99024

== ENCOUNTER 2023-07-14 10:16 | Outpatient (REF) | payer MEDICARE, SELFPAY ==
--- NOTE | ~2023-07-14 | XR_ITS ---
EXAMINATION: XR SHOULDER, RIGHT CLINICAL INFORMATION: Pain in unspecified shoulder. COMPARISON: 05/31/2023, 06/16/2023 and prior. TECHNIQUE: Three views of the right shoulder. FINDINGS: Redemonstration of right shoulder arthroplasty. Hardware appears intact. Alignment maintained. XR/XR shoulder RT min 2V IMPRESSION: Redemonstration of right shoulder arthroplasty. Hardware appears intact. Alignment maintained.
== END 2023-07-14 10:17 | disposition home or self-care (01) ==
LOC: HO.HOSX 10:16
PROVIDERS: Visit Provider Orthopaedic Surgery
DX: M25.511 Pain in right shoulder (principal); Z47.1 Aftercare following joint replacement surgery; Z96.611 Presence of right artificial shoulder joint
CPT/HCPCS: 73030; 99212

== ENCOUNTER 2023-07-14 10:27 | Outpatient (AMB) | payer MEDICARE, SELFPAY ==
--- NOTE | 2023-07-14 11:01 | MHC.OFFVIS ---
Intake Intake Visit Reasons: PO-Rt TSA 05/31/23-book wt NE Intake Note: Damir is an 82 year old right hand dominant male who presents today with his for a post operative appointment s/p Right TSA 05/31/23. Patient reports that he is doing very well, with no concerns. Allergies heparin [HEPARIN] Allergy (Intermediate, Verified 05/20/23 10:16) decreased platelet count Penicillins [PENICILLINS] Allergy (Intermediate, Verified 05/20/23 10:16) Hives apixaban [From Eliquis] Adverse Reaction (Verified 06/16/23 14:04) increased urination HPI PO-Rt TSA 05/31/23-book wt NE HPI Details Damir is an 82 year old right hand dominant male who presents today with his for a post operative appointment s/p Right TSA 05/31/23. Patient reports that he is doing very well, with no concerns. [facility] Medical History Asthma Thoracic aortic aneurysm Sleep apnea HTN (hypertension) Heparin induced thrombocytopenia Chronic renal insufficiency Pulmonary embolism CAD (coronary artery disease) Prediabetes Nephrolithiasis Insomnia Hypercholesteremia Atrial fibrillation Arteriosclerosis Surgical History Hx of cardiac catheterization Hx of cataract surgery Hx of CABG History of appendectomy History of total left knee replacement History of total right knee replacement Social History Household Members: Spouse Housing: House Are you a primary healthcare financial analyst to a significant other at home: No Do you presently have visiting nurse or other home services: No Patient Tobacco Use Status: Never used Tobacco service: No Current occupational status: retired Current occupation: Right Handed Physical Exam Extrem Other: inc c/d/i /120/ Results Reviewed Results Reviewed: I personally reviewed relevant radiographs. Right total shoulder arthroplasty in expected post operative position with no hardware complications or evidence of loosening Assessment & Plan Assessment & Plan (1) Status post total replacement of right shoulder: Code(s): Z96.611 - Presence of right artificial shoulder joint Plan: Damir is doing very well status post right shoulder replacement. Dental prophylaxis antibiotics were sent to his pharmacy. He should continue gradual strengthening. And he may return to see me at any time specifically at the 1 year time point. Orders: Orders XR shoulder RT min 2V Today M25.519 - Pain in unspecified shoulder Medications: New clindamycin HCl Take one hour prior to dental procedure 300 mg PO ONCE 1 cap 0RF dental prophylaxis Coding Level of Care Code Global (34049) Diagnoses Status post total replacement of right shoulder Z96.611
== END 2023-07-14 11:53 | disposition home or self-care (01) ==
PROVIDERS: PCP Internal Medicine; Visit Provider Orthopaedic Surgery
DX: Z96.611 Presence of right artificial shoulder joint (principal)
CPT/HCPCS: 99024

== ENCOUNTER 2024-04-13 09:01 | Outpatient (REF) | payer MEDICARE, SELFPAY ==
--- NOTE | ~2024-04-13 | XR_ITS ---
CLINICAL HISTORY: M25.519 - Pain in unspecified shoulder 3 view right shoulder Comparison: None Findings: No fractures or dislocations. No significant arthritic change. No erosions. No radiopaque foreign body. The patient is status post right shoulder replacement. Alignment is anatomic. No complications are noted. IMPRESSION: The patient is status post right shoulder replacement. Alignment is anatomic. No complications are noted. This document has been electronically signed by: Xavier Santos MD on 04/16/2024 12:04:48
--- OUTSIDE RECORDS SUMMARY | 2024-04-13 09:03 | XMS_ITS | Data Portability ---
Author Organization [facility] [address] [address] [facility] Address [address] [place] [address] Care Team Providers Care Supervisor [employer] Vault Name Role Phone CARYN MARMOLEJO Primary Care Provider Assessment No assessment recorded. Plan of Treatment Reminders Order Date Submit Date Provider Last Modified By Organization Details Last Modified Time Details Appointments None recorded. Lab None recorded. Referral None recorded. Procedures None recorded. Surgeries None recorded. Imaging None recorded. Medication Orders albuterol sulfate HFA 90 mcg/actuati on aerosol inhaler 2023 024 [id number], [address] [place], [address], 09:19:32 prednisone 20 mg tablet 2023 024 [facility] #[id number], [address] [place], [address], 09:19:32 Patient TargetsNo targets recorded. Patient Instructions Encounter Date Encounter Id Patient Instructions Last Modified By Organization Details Last Modified Time 01/14/2024 [id number] asthma attack: care instructions Not available 01/14/2024 09:19:30 upper respirator y infection (cold): care instructions Not available 01/14/2024 09:19:30 Reason for Referral None Reported. Problems Name Problem SNOMED Code Status Onset Date Resolution Date Notes Provider Name and Address Organization Details Recorded Time Asthma 606748730 Active [facility]AN[facility] 08:57:32 Hypertensive disorder 90432391 Active YANICK Brice [facility] 4 08:58:07 Exacerbation of intermittent asthma 695451496 Active 2023 [facility] [address] [facility] [place], [address], [place] - [facility] 4 09:17:28 Upper respiratory infection 61120650 Active 2023 Kamla Fraire NP [address] [place], [address], [place] - [facility] 4 09:18:51 Problem Notes None recorded. Medical Equipment None Reported. Allergies Allergen ID Allergen Name Allergen Category Reaction Reaction Severity Criticality Documentation Date Start Date Code Code System Note Provider Name and Address Organization Details Recorded Time 008100 heparin medicatio n Not available Not available Not available 01/14/2024 5224 RxNorm Meet Anthony ramos, [place] - [facility] 4 08:55:19 095071 penicilli n G Not available Not available Not available Not available 01/14/2024 7980 RxNorm Meetmadeline ramos, PA - [facility] 4 08:55:27 Medications Name Sig Start Date Stop Date Status Note LastModified by Organization Details LastModified Time celecoxib 200 mg capsule 01/13 completed Not Available Not Available Not Available clindamycin HCl 300 mg capsule TAKE 1 CAPSULE BY MOUTH ONCE FOR DENTAL PROPHYLAX IS TAKE ONE HOUR PRIOR TO DENTAL PROCEDURE 01/13 completed Not Available Not Available Not Available prednisone 20 mg tablet Take 3 tablets every day by oral route for 5 days, for asthma. 2023 active Not Available Not Available Not Avai lable chlorthalid one 25 mg tablet TAKE 1 TABLET BY MOUTH EVERY DAY active Not Available Not Available No t Available sildenafil 100 mg tablet TAKE 1 TABLET BY MOUTH EVERY DAY 1 HOUR BEFORE SEXAUL ACTIVITY active Not Available Not Available No t Available erythromyci n 5 mg/gram (0.5 %) eye ointment APPLY 0.5 INCHES INTO THE LEFT EYE AT BEDTIME active Not Available Not Available No t Available diltiazem CD 120 mg capsule,ext ended release 24 hr TAKE 1 CAPSULE BY MOUTH EVERY DAY active Not Available Not Available No t Available albuterol sulfate HFA 90 mcg/actuati on aerosol inhaler Inhale 2 puffs every 4 hours by inhalatio n route as needed for 30 days, for asthma. 2023 active Not Available Not Available Not Avai lable lisinopril 40 mg tablet TAKE 1 TABLET BY MOUTH EVERY DAY active Not Available Not Available No t Available oxycodone 5 mg tablet 01/13 completed Not Available Not Available Not Available rosuvastati n 10 mg tablet TAKE 1 TABLET BY MOUTH EVERY DAY active Not Available Not Available No t Available Eliquis 2.5 mg tablet TAKE 1 TABLET BY MOUTH 2 TIMES A DAY FOR 4 WEEKS 01/13 completed Not Available Not Available Not Available Wixela Inhub 100 mcg-50 mcg/dose powder for inhalation TAKE 1 PUFF BY MOUTH TWICE A DAY active Not Available Not Available No t Available Vitals Date Recorded Body height Body mass index (BMI) Body weight Oxygen saturation Oxygen saturation in Arterial blood by Pulse oximetry Heart rate Respiratory rate Body temperature Systolic blood pressure Diastolic blood pressure Provider Name and Address Organization Details Last Updated DateTime 172.72 cm 41.8 kg/m2 812780. 9 g 98 % 98 % 98 /min 20 /min 98 [degF] 133 mm[Hg] 74 mm[Hg] Meet Brown PA - [facility] 08:54:24 Social History Question Answer Notes LastModified by Organizat ion Details LastModified Time Are You Currently Employed? No Information not available 01/14/2024 Have You Had A Flu Shot This Season? No Information no t available 01/14/2024 If No, Would You Like A Flu Shot Today? No Information not available 01/14/2024 What Is Your Water Source? City Information not available 01/14/2024 What Is Your Heat Source? Other Information not available 01/14/2024 What Is Your Relationship Status? Information not available 01/14/2024 Are You Passively Exposed To Smoke? No Information no t available 01/14/2024 Do You Use Any Illicit Or Recreational Drugs? No Information not available 01/14/2024 Have You Recently Traveled Abroad? Yes [place] Information not available 01/14/2024 Do You Or Have You Ever Used Any Other Forms Of Tobacco Or Nicotine? No Information not available 01/14/2024 Sex: Unknown Functional Status None recorded. Mental Status None recorded. Family History Relationship Description Onset Age of this Age Resolved Age Notes LastModified by Organization Details LastModified Time Father Malignant tumor of lung fcuevasgonzal ez Not available 01/14/2024 08:58:38 Medical History No medical history recorded. Immunizations Vaccine Type Date Status Note Provider Nam e and Address Organization Details Recorded Time Pneumococcal conjugate PCV20, polysaccharide [id number] conjugate, adjuvant, PF 3 completed Meet Brown null, PA - [facility] 01/14/2024 08:55:04 Tdap 3 completed Meet Brown null, PA - [facility] 01/14/2024 08:55:04 Influenza, high-dose, trivalent, PF 8 completed Meet Brown null, PA - [facility] 01/14/2024 08:55:04 Influenza, high-dose, trivalent, PF 7 completed Meet Brown null, [place] - [facility] 01/14/2024 08:55:04 Influenza, high-dose, trivalent, PF 6 completed Meet Brown null, [place] - [facility] 01/14/2024 08:55:04 Influenza, split virus, trivalent, preservative 1 completed Meet Brown null, [place] - [facility] 01/14/2024 08:55:04 Influenza, split virus, trivalent, preservative 3 completed Meet Brown null, [place] - [facility] 01/14/2024 08:55:04 Influenza, split virus, trivalent, preservative 3 completed Meet Brown null, [place] - [facility] 01/14/2024 08:55:04 Influenza, split virus, trivalent, preservative 2 completed Meet [facility] 01/14/2024 08:55:04 Past Encounters Encounter ID Performer Location Encounter Start Date Encounter Closed Date Diagnosis/Indication Diagnosis SNOMED-CT Code Diagnosis ICD10 Code Diagnosis Note [id number] [address] [place] [id number] 07/30/2015 09:29:30 07/30/2015 10:22:03 [id number] [address] [place] [id number] 01/31/2018 13:04:00 01/31/2018 14:04:55 [id number] [address] [place] [id number] 01/13/2016 16:24:29 01/13/2016 16:58:29 [id number] [address] [place] [id number] 07/27/2015 11:59:47 07/27/2015 12:54:15 [id number] Kamla Fraire [facility] [address] [facility] [place] [phone] 01/14/2024 08:39:59 01/14/2024 09:20:18 Exacerbation of intermittent asthma 060333001 J45.21 Based on your Presentati on, Exam, and Lab Testing you are being diagnosed with Upper respirator y track infection with asthma exacerbati on take the steroid as prescribed Follow your establishe d asthma action plan The following are my recommenda tions to help with your symptoms while your body fights this infection: 1. Take Ibuprofen or Tylenol if you do not have any allergies to these medication s. If you take a blood thinner you should not take NSAIDS like Ibuprofen. These medication will help with the inflammati on in your respirator y tract which should help cough.2. Do not take any decongesta nts at this time because this will dry out that tract too much. If you have a lot of nasal congestion you can try nasal decongesta nts, but I would not take them more than 5 days.3. Use a humidifier or add a cup of water by your bed. Sometimes if our sleeping environmen t is too dry this can lead to cough4. Salt Water Gargles5. Saline nasal spray is helpful.6. Would recommend taking a antihistam ine to help with the congestion .7. Clean Surfaces regularly and try to stay isolated from family members. I would be seen again if you develop any of the following. 1. Cough develops last longer than 3 weeks.2. Develop shortness of breath or wheezing.3 . Severe Headache with vision changes4. Stiff Neck5. Fever does not reduce a few points with Ibuprofen or Tylenol. I would go immediatel y to the Emergency Room if you develop:1. Chest Pain2. Severe Shortness of breath3. Coughing up Blood. I would be seen again if you develop any of the following symptoms.1 . Fever > 101.02. Stiff neck - where you can't turn your neck3. Trouble swallowing your saliva - drooling4. Swelling of a lymph node in your throat that is painful to touch5. Difficulty breathing6 . Severe Headache Thank you for using [facility] today, please feel free to contact our office if you have any questions or concerns. Upper resp iratory infection 67413803 J06.9 Based on your Presentati on and Exam you are being diagnosed with a viral upper respirator y track infection your condition is caused by a virus that can be highly contagious . If you have any family member that have been exposed they typically will start to show symptoms in 48-72 hours. You are considered contagious for 5 Days after the start of the fever. You should isolate and not go to work, sports, events during this quarantine period. The following are my recommenda tions to help with your symptoms while your body fights this infection: 1. Take Ibuprofen or Tylenol if you do not have any allergies to these medication s. If you take a blood thinner you should not take NSAIDS like Ibuprofen. These medication will help with the inflammati on in your respirator y tract which should help the cough.2. Do not take any decongesta nts at this time because this will dry out that tract too much. If you have a lot of nasal congestion you can try nasal decongesta nts, but I would not take them more than 5 days.3. Use a humidifier or add a cup of water by your bed. Sometimes if our sleeping environmen t is too dry this can lead to cough4. Salt Water Gargles5. Saline nasal spray is helpful.6. Would recommend taking a antihistam ine to help with the congestion .7. Clean Surfaces regularly and try to stay isolated from family members. I would be seen again if you develop any of the following. 1. Cough develops last longer than 3 weeks.2. Develop shortness of breath or wheezing.3 . Severe Headache with vision changes4. Stiff Neck5. Fever does not reduce a few points with Ibuprofen or Tylenol. I would go immediatel y to the Emergency Room if you develop:1. Chest Pain2. Severe Shortness of breath3. Coughing up Blood. Health Concerns Section Related Observation LastModified by Organization Detai ls LastModified Time None Recorded Concern Status LastModified by Organization Details LastModified Time None Recorded Advance Directives Directive None Recorded Payers Encounter Date Sequence Insurance Name Policy Number Policy Larios Covered Member ID Larios Member ID Guarantor Name 07/27/2015 2 [place] [employer] Damir Angel [id number] Damir Angel 07/30/2015 2 [place] [employer] Damir Maurer Constant [id number] Damir Angel 01/13/2016 2 [place] [facility] Damir Maurer Constant [id number] Damir Angel 01/31/2018 1 [facility] [id number] Damir Angel [id number] Damir Angel 01/31/2018 2 [place] [employer] Damir Maurer Constant [id number] Damir Angel 01/14/2024 1 [employer] (MEDICARE REPLACEMENT PPO) Damir Angel [id number] Damir Angel Notes Date Note Type Note Provider Name and Address Organization Details Recorded Time 4 text/html CoughReported bypatient.source of patient informationInformation obtained from patient; Patient arrived at Urgent Care ambulatory Quality:barking;dry; symptoms worse with lying down Severity:worsening; moderate Duration:5 days Timing:gradual Context:family members ill with similar symptoms; Patient denies vaping; non-smoker;history of asthma Modifying Factors:at night Associated Symptoms:no fever; no chills; no chest pain; no heartburn; no nausea; no vomiting; no edema; no agitation; no post nasal drip;wheezing;can't get a deep breath 83 YOM presents with wheezing and dyspnea for the last 7 days. has long hx of asthma . was traveling through [place] when the sx started . . his rx was and he was not able to get relief from the sx . presently he is not in acute distress . Kamla Fraire NP [address] [place], [address], [place] - [facility] 01/14/2024 10:36:18
--- OUTSIDE RECORDS SUMMARY | 2024-04-13 09:04 | XMS_ITS | Continuity of Care Document ---
Author Organization YANICK Dubose [facility] Address [address] [place] [address] Care Team Providers Care Sole Rougher Name Role Phone CARYN MARMOLEJO Primary Care Provider Assessment No assessment recorded. Plan of Treatment Reminders Order Date Submit Date Provider Last Modified By Organization Details Last Modified Time Details Appointments None recorded. Lab None recorded. Referral None recorded. Procedures None recorded. Surgeries None recorded. Imaging None recorded. Medication Orders albuterol sulfate HFA 90 mcg/actuati on aerosol inhaler 2023 024 [facility] #[id number], [address] [place], [address], 09:19:32 prednisone 20 mg tablet 2023 024 [facility] #[id number], [address] [place], [address], 09:19:32 Patient TargetsNo targets recorded. Patient Instructions Encounter Date Encounter Id Patient Instructions Last Modified By Organization Details Last Modified Time 01/14/2024 [id number] asthma attack: care instructions Not available 01/14/2024 09:19:30 upper respirator y infection (cold): care instructions Not available 01/14/2024 09:19:30 Reason for Referral None Reported. Problems Name Problem SNOMED Code Status Onset Date Resolution Date Notes Provider Name and Address Organization Details Recorded Time Asthma 639188075 Active YANICK Brice [facility] 08:57:32 Hypertensive disorder 68849386 Active Meet ramos PA [facility] 4 08:58:07 Exacerbation of intermittent asthma 141118820 Active 2023 Kamla Fraire NP [address] [place], [address], [place] - [facility] 4 09:17:28 Upper respiratory infection 19351889 Active 2023 Kamla Fraire NP [address] [place], [address], [place] - [facility] 4 09:18:51 Problem Notes None recorded. Medical Equipment None Reported. Allergies Allergen ID Allergen Name Allergen Category Reaction Reaction Severity Criticality Documentation Date Start Date Code Code System Note Provider Name and Address Organization Details Recorded Time 159770 heparin medicatio n Not available Not available Not available 01/14/2024 5224 RxNorm Meetmadeline ramos, [place] - [facility] 4 08:55:19 619765 penicilli n G Not available Not available [...] Last Updated DateTime 172.72 cm 41.8 kg/m2 742012. 9 g 98 % 98 % 98 [...] 01/14/2024 Have You Recently Traveled Abroad? Yes [place] Information not available 01/14/2024 Do You Or [...] Details Recorded Time Pneumococcal conjugate PCV20, polysaccharide DBB677 conjugate, adjuvant, PF 3 completed Meet Brown [...] split virus, trivalent, preservative 2 completed Meet Cruz YANICK Saavedra [facility] 01/14/2024 08:55:04 Past Encounters Encounter ID Performer Location Encounter Start Date Encounter Closed Date Diagnosis/Indication Diagnosis SNOMED-CT Code Diagnosis ICD10 Code Diagnosis Note [id number] Kamla Fraire, [employer] [address] [phone] 01/14/2024 08:39:59 01/14/2024 09:20:18 Exacerbation of intermittent asthma 224639114 J45.21 Based on your Presentati on, Exam, [...] . Severe Headache Thank you for using [facility] today, please feel free to contact our office if you have any questions or concerns. Upper resp iratory infection 55857595 J06.9 Based on your Presentati on and [...] by Organization Details LastModified Time None Recorded Payers Encounter Date Sequence Insurance Name Policy Number Policy Larios Covered Member ID Larios Member ID Guarantor Name 01/14/2024 1 [employer] (MEDICARE REPLACEMENT PPO) Damir Angel [id number] Damir Angel Notes Date Note Type Note [...] hx of asthma . was traveling through [place] when the sx started . . his rx was and he was not able to get relief from the sx . presently he is not in acute distress . Kamla Fraire NP [address] [place], [address], [place] - [facility] 01/14/2024 10:36:18
== END 2024-04-13 09:02 | disposition home or self-care (01) ==
LOC: HO.HOSX 09:01
PROVIDERS: Visit Provider Orthopaedic Surgery
DX: M25.511 Pain in right shoulder (principal); Z96.611 Presence of right artificial shoulder joint
CPT/HCPCS: 73030; 99212

== ENCOUNTER 2024-04-13 09:29 | Outpatient (AMB) | payer MEDICARE, SELFPAY ==
--- NOTE | 2024-04-13 09:39 | MHC.OFFVIS ---
Intake Visit Reasons: PO-Rt TSA 05/31/23-book wt [place] Intake Note: Damir is an 83 year old right hand dominant male who presents today for a post operative appointment s/p Right TSA 05/31/23. Patient reports that he is doing excellent with no concerns Allergies heparin [HEPARIN] Allergy (Intermediate, Verified 05/20/23 10:16) decreased platelet count Penicillins [PENICILLINS] Allergy (Intermediate, Verified 05/20/23 10:16) Hives apixaban [From Eliquis] Adverse Reaction (Verified 06/16/23 14:04) increased urination HPI HPI PO-Rt TSA 05/31/23-book wt [place]: Details: Damir is an 83 year old right hand dominant male who presents today for a post operative appointment s/p Right TSA 05/31/23. Patient reports that he is doing excellent with no concerns PFSH Medical History Asthma Thoracic aortic aneurysm Sleep apnea HTN (hypertension) Heparin induced thrombocytopenia Chronic renal insufficiency Pulmonary embolism CAD (coronary artery disease) Prediabetes Nephrolithiasis Insomnia Hypercholesteremia Atrial fibrillation Arteriosclerosis Surgical History Hx of cardiac catheterization Hx of cataract surgery Hx of CABG History of appendectomy History of total left knee replacement History of total right knee replacement Social History Household Members: Spouse Housing: House Are you a primary regular senior care provider to a significant other at home: No Do you presently have visiting nurse or other home services: No Patient Tobacco Use Status: Never used Tobacco service: No Current occupational status: retired Current occupation: Right Handed Physical Exam Extrem Other: 30/90/130/hp inc c/d/i Results Reviewed Results Reviewed: I personally reviewed relevant radiographs. Right TSA in expected post operative position with no hardware complications or evidence of loosening Assessment & Plan Assessment & Plan (1) Status post total replacement of right shoulder: Code(s): Z96.611 - Presence of right artificial shoulder joint Category: Surgical Plan: Damir is doing very well. He has no pain. He has great motion. His radiographs demonstrate prosthesis in appropriate position without any hardware complications. Dental prophylaxis discussed an Rx for clindamycin sent to his pharmacy. Follow up as needed. Orders: Orders XR shoulder RT min 2V Today M25.519 - Pain in unspecified shoulder Coding Level of Care Code Est Pt Level 3 (80858) Diagnoses Status post total replacement of right shoulder Z96.611
== END 2024-04-13 10:11 | disposition home or self-care (01) ==
PROVIDERS: PCP Internal Medicine; Visit Provider Orthopaedic Surgery
DX: Z47.89 Encounter for other orthopedic aftercare (principal); Z96.611 Presence of right artificial shoulder joint
CPT/HCPCS: 99212